=== PATIENT | female | born 1970 | race Caucasian/White ===

== ENCOUNTER 2016-06-10 15:57 | Emergency (ER) | payer MEDICAID ==
[~2016-06-10] VITALS: Wt 70.0 kg
[~2016-06-10 15:57] MED LIST: IBUP-1542 PO; IBUP-725
[2016-06-10] MEDS ORDERED: DIAZ-90 PO (16:23)
--- NOTE | 2016-06-10 16:23 | ERD ---
ER Documentation Chief Complaint Date/Time DATE: 06/10/16 TIME: 16:12 Chief Complaint INSOMNIA AND FEELING DEPRESSED WITH NO SI OR HI. HPI Pleasant Bangladeshi-speaking 45-year-old female comes into emergency department today with migraine exacerbation, stress, and difficulty sleeping. Translation provided by phone antonia. Patient reports she has stress, chronic neck pain that causes migraines. Patient is experiencing photosensitivity, flashing light on left side, with nausea. Patient reports using Valium in the past for neck pain and sleep reports that it is effective. Patient has used Motrin for migraines in the past which usually works for symptoms, patient states that has not worked for this headache. Patient does not know the exact time that headache started, but this is not the worst headache of patient's life. ROS All systems reviewed and are negative except as per history of present illness. Medications Home Meds Active Scripts Ibuprofen* (Motrin*) 800 Mg Tab, 800 MG PO Q6, #30 TAB Prov:REMBERTO,CHRIS 06/10/16 Diazepam* (Valium*) 5 Mg Tablet, 5 MG PO Q8, #10 TAB Prov:REMBERTO,CHRIS 06/10/16 Ibuprofen* (Motrin*) 600 Mg Tab, 600 MG PO Q6H Y for PAIN AND OR ELEVATED TEMP, #30 Prov:ELÍAS VILLELA NP 09/11/14 Reported Medications Ibuprofen (Motrin) 400 Mg Tablet 09/05/12 Allergies Allergies: Coded Allergies: No Known Allergy (Verified , 09/11/14) PMhx/Soc History of Surgery: No Anesthesia Reaction: No Hx Neurological Disorder: No Hx Respiratory Disorders: No Hx Cardiac Disorders: No Hx Miscellaneous Medical Probl: No Hx Alcohol Use: No Hx Substance Use: No Hx Tobacco Use: No Physical Exam Vitals Vital Signs Date Time Temp Pulse Resp B/P Pulse Ox O2 Delivery O2 Flow Rate FiO2 06/10/16 16:07 98.8 93 20 120/74 98 Nursing notes reviewed, vital stable Physical Exam Const: No acute distress Head: Atraumatic Eyes: Normal Conjunctiva, PERRLA, EOMI, ENT: Normal External Ears, Nose and Mouth. Neck: Full range of motion. No cervical point tenderness, paraspinal muscle tenderness. Resp: Cardio: Abd: Skin: Back: Ext: Neur: Speech is clear, pupils equal round and reactive to light and accommodation, sensation to light touch is intact bilaterally. There is no pronator drift. Finger to nose test is intact bilaterally. Director [employer] strength is 5/ 5. Flexion and extension is intact bilaterally Psych: Normal Mood and Affect Procedures/MDM Pleasant 45-year-old patient reports chronic migraine, neck pain and stress, patient denies any injury, has classic migraine symptoms, and palpable muscle tenderness to paraspinal and trapezius. I feel the patient is stable for discharge at this time. And will benefit from outpatient therapy with a short dose of Valium for muscle relaxant, and Motrin, patient should follow-up with her primary care physician for reevaluation. I have discussed results, examination findings, the treatment plan with the patient and family present prior to discharge. Indications for emergent reevaluation, side effects of medication were also discussed. All questions were answered. Patient verbalizes understanding and agrees with plan of care. Departure Diagnosis: Primary Impression: Cervical strain Encounter type: initial encounter Qualified Code: S16.1XXA - Cervical strain , initial encounter Additional Impression: Headache Headache chronicity pattern: chronic headache Intractability: not intractable Condition: Good Patient Instructions: Self-Care for Headaches [facility] Additional Instructions: Thank you for for coming to [facility] for your care today. Please ask your nurse or provider if you have questions about your care today and do not leave until all your questions have been answered. Please use any medications given as directed and follow-up with your doctor (or the doctor you were referred to) in the next 2-3 days. If you do not have a primary care doctor you may follow up at the [facility] [place] (listed below). You may also use motrin and tylenol as needed for fever and/or pain unless instructed otherwise by your provider or nurse. Indications for more urgent follow-up have been discussed, but you may return to the Emergency Department at ANY time for any worrisome or worsening symptoms. If you have abdominal pain, please know that no test or exam you received is perfect and you should follow up within 8 hours for continued pain. If you had any imaging studies today, such as an X-Ray or CT Scan, these studies will be reviewed later by a radiologist. You will be called if there are important findings that were not identified today, so make sure the contact information you provided at registration is correct. If you received any narcotic pain control medicine today, such as Vicodin, Morphine or Dilaudid, your coordination and judgment may be affected for a number of hours. Please do not drive or operate heavy machinery, and you may want someone to assist you at home. If you were given a prescription for narcotic medication, be aware that it is very addictive- use sparingly and only if necessary. CHRIS SR Jun 10, 2016 16:23
[2016-06-10] MEDS ORDERED: IBUP800T25 PO (16:24)
== END 2016-06-10 16:24 | disposition home or self-care (01) ==
LOC: E/R 15:57
DX: S16.1XXA Strain of muscle, fascia and tendon at neck level, initial encounter (principal); R51 Headache; X58.XXXA Exposure to other specified factors, initial encounter; Y92.9 Unspecified place or not applicable
CPT/HCPCS: 99283

== ENCOUNTER 2016-06-21 14:50 | Emergency (ER) | payer MEDICAID ==
[~2016-06-21] VITALS: Ht 157.5 cm; Wt 65.9 kg
[~2016-06-21 14:50] MED LIST changes: +DIAZ-90 PO; +IBUP800T25 PO
[2016-06-21 15:00] VITALS: Ht 157.5 cm; Wt 65.9 kg
--- NOTE | 2016-06-21 15:21 | ERA ---
ER Documentation Chief Complaint Date/Time DATE: 06/21/16 TIME: 15:19 Chief Complaint BROUGHT IN VIA EMS DUE TO ETOH WITH [employer] HPI Patient is a 45-year-old female who was brought in by EMS with [employer] because she was found on a bridge threatening to jump off of it. She is admittedly intoxicated. She does not say anything to me other than she wants a blanket. The remainder of the systems are limited. ROS All systems reviewed and are negative except as per history of present illness. Medications Home Meds Active Scripts Ibuprofen* (Motrin*) 800 Mg Tab, 800 MG PO Q6, #30 TAB Prov:REMBERTO,CHRIS 06/10/16 Diazepam* (Valium*) 5 Mg Tablet, 5 MG PO Q8, #10 TAB Prov:REMBERTO,CHRIS 06/10/16 Discontinued Reported Medications Ibuprofen (Motrin) 400 Mg Tablet 09/05/12 Discontinued Scripts Ibuprofen* (Motrin*) 600 Mg Tab, 600 MG PO Q6H Y for PAIN AND OR ELEVATED TEMP, #30 Prov:ELÍAS VILLELA NP 09/11/14 Allergies Allergies: Coded Allergies: No Known Allergy (Verified , 06/21/16) PMhx/Soc History of Surgery: No Anesthesia Reaction: No Hx Neurological Disorder: No Hx Respiratory Disorders: No Hx Cardiac Disorders: No Hx Psychiatric Problems: Yes (ANXIETY) Hx Miscellaneous Medical Probl: No Hx Alcohol Use: Yes Hx Substance Use: No Hx Tobacco Use: No Smoking Status: Never smoker Physical Exam Vitals Vital Signs Date Time Temp Pulse Resp B/P Pulse Ox O2 Delivery O2 Flow Rate FiO2 06/21/16 15:00 98.0 100 18 146/86 99 Physical Exam Const: [] Well-developed well-nourished female lying on the bed tearful, smelling of alcohol Head: Atraumatic normocephalic Eyes: Normal Conjunctiva ENT: Normal External Ears, Nose and Mouth. Neck: Full range of motion..~ No meningismus. Resp: Clear to auscultation bilaterally Cardio: Regular rate and rhythm, no murmurs Abd: Soft, non tender, non distended. Normal bowel sounds Skin: No petechiae or rashes Back: No midline or flank tenderness Ext: No cyanosis, or edema Neur: Awake and alert, GCS of 15, nonfocal Psych: Depressed mood with tearful affect Result Diagram: 06/21/16 1525 06/21/16 1525 Results 24 hrs Laboratory Tests Test 06/21/16 15:25 06/21/16 15:50 White Blood Count 8.710^3/ul Red Blood Count 3.8710^6/ul Hemoglobin 12.6g/dl Hematocrit 35.8% Mean Corpuscular Volume 92.5fl Mean Corpuscular Hemoglobin 32.6pg Mean Corpuscular Hemoglobin Concent 35.2g/dl Red Cell Distribution Width 12.2% Platelet Count 08656^3/UL Mean Platelet Volume 9.5fl Neutrophils % 52.5% Lymphocytes % 39.9% Monocytes % 6.0% Eosinophils % 1.3% Basophils % 0.1% Nucleated Red Blood Cells % 0.0/100WBC Neutrophils # 4.610^3/ul Lymphocytes # 3.510^3/ul Monocytes # 0.510^3/ul Eosinophils # 0.110^3/ul Basophils # 0.010^3/ul Nucleated Red Blood Cells # 0.010^3/ul Sodium Level 143mmol/L Potassium Level 3.2mmol/L Chloride Level 106mmol/L Carbon Dioxide Level 23mmol/L Anion Gap 17 Blood Urea Nitrogen 18mg/dl Creatinine 0.70mg/dl Glucose Level 159mg/dl Calcium Level 9.2mg/dl Total Bilirubin 0.1mg/dl Direct Bilirubin 0.00mg/dl Indirect Bilirubin 0.1mg/dl Aspartate Amino Transf (AST/SGOT) 47IU/L Alanine Aminotransferase (ALT/SGPT) 47IU/L Alkaline Phosphatase 114IU/L Total Protein 7.6g/dl Albumin 4.2g/dl Globulin 3.40g/dl Albumin/Globulin Ratio 1.23 Salicylates Level < 1.0mg/dl Acetaminophen Level < 10.0ug/ml Ethyl Alcohol Level 358.0mg/dl Urine Color LT. YELLOW Urine Clarity CLEAR Urine pH 6.5 Urine Specific [place] <=1.005 Urine Ketones NEGATIVE Urine Nitrite NEGATIVE Urine Bilirubin NEGATIVE Urine Urobilinogen 0.2 E.U./dL Urine Leukocyte Esterase TRACE Urine Microscopic RBC 0-2/HPF Urine Microscopic WBC 0-2/HPF Urine Squamous Epithelial Cells MODERATE Urine Hemoglobin TRACE Urine Glucose NEGATIVE% Urine Total Protein NEGATIVE Urine Opiates Screen NEGATIVE Urine Barbiturates NEGATIVE Urine Amphetamines Screen POSITIVE Urine Benzodiazepines Screen NEGATIVE Urine Cocaine Screen NEGATIVE Urine Cannabinoids NEGATIVE Procedures/MDM Differential includes major depressive disorder, alcohol intoxication, suicidal ideation, suicide attempt 1840: Patient went to the bathroom and proceeded to beat her head on the floor in an attempt to hurt her self. 4 point restraints have now been ordered for her. Lab work confirms that she is intoxicated. Urine drug screen is positive for amphetamines as well. Patient will need to be transferred to a psychiatric facility for further treatment once she is sober. Departure Diagnosis: Primary Impression: Agitated depression Additional Impressions: Suicide ideation Suicide attempt Alcohol intoxication Qualified Code: F10.120 - Alcohol intoxication, uncomplicated Amphetamine abuse Condition: Good JAYLAN CORTES Jun 21, 2016 15:21
[2016-06-21 15:34] LABS: ADD SCAN DIFF NO
[2016-06-21 15:36] LABS: BASOPHILS % 0.1 % (0.0-2.0); EOSINOPHILS # 0.1 10^3/ul (0.0-0.5); EOSINOPHILS % 1.3 % (0.0-7.0); HEMATOCRIT 35.8 % (37.0-47.0); HEMOGLOBIN 12.6 g/dl (12.0-16.0); LYMPHOCYTES # 3.5 10^3/ul (0.8-2.9); LYMPHOCYTES % 39.9 % (15.0-51.0); MEAN CORPUSCULAR HEMOGLOBIN 32.6 pg (29.0-33.0); MEAN CORPUSCULAR HGB CONC 35.2 g/dl (32.0-37.0); MEAN CORPUSCULAR VOLUME 92.5 fl (82.0-101.0); MEAN PLATELET VOLUME 9.5 fl (7.4-10.4); MONOCYTE # 0.5 10^3/ul (0.3-0.9); NEUTROPHIL # 4.6 10^3/ul (1.6-7.5); NEUTROPHILS % 52.5 % (39.0-77.0); PLATELET COUNT 360 10^3/UL (140-415); RED BLOOD COUNT 3.87 10^6/ul (4.20-5.40); RED CELL DISTRIBUTION WIDTH 12.2 % (11.5-14.5); WHITE BLOOD COUNT 8.7 10^3/ul (4.8-10.8)
[2016-06-21 16:00] LABS: CHLORIDE 106 mmol/L (97-110)
[2016-06-21 16:01] LABS: ALBUMIN 4.2 g/dl (3.3-4.9); POTASSIUM 3.2 mmol/L (3.5-5.1); SODIUM 143 mmol/L (135-144)
[2016-06-21 16:03] LABS: ANION GAP 17 (8-16); BILIRUBIN,INDIRECT 0.1 mg/dl (0-1.1); BILIRUBIN,TOTAL 0.1 mg/dl (0.2-1.3); CARBON DIOXIDE 23 mmol/L (21-31)
[2016-06-21 16:04] LABS: ALANINE AMINOTRANSFERASE 47 IU/L (13-69); ALBUMIN/GLOBULIN RATIO 1.23; ALKALINE PHOSPHATASE 114 IU/L (42-121); ASPARTATE AMINO TRANSFERASE 47 IU/L (15-46); BLOOD UREA NITROGEN 18 mg/dl (7-20); CALCIUM 9.2 mg/dl (8.4-10.2); GLUCOSE 159 mg/dl (70-220); TOTAL PROTEIN 7.6 g/dl (6.1-8.1)
[2016-06-21 16:06] LABS: ACETAMINOPHEN < 10.0 ug/ml (10.0-30.0); SALICYLATE < 1.0 mg/dl (5.0-30.0)
[2016-06-21 16:15] LABS: ADD UMIC YES; URINE BILIRUBIN (Dip) NEGATIVE (NEGATIVE); URINE BLOOD (Dip) TRACE (NEGATIVE); URINE COLOR LT. YELLOW (YELLOW); URINE GLUCOSE (Dip) NEGATIVE (NEGATIVE); URINE KETONES (Dip) NEGATIVE (NEGATIVE); URINE LEUKOCYTE ESTERASE (Dip) TRACE (NEGATIVE); URINE NITRITE (Dip) NEGATIVE (NEGATIVE); URINE TOTAL PROTEIN (Dip) NEGATIVE (NEGATIVE); URINE UROBILINOGEN (Dip) 0.2 E.U./dL (0.1-1.0)
[2016-06-21 16:25] LABS: SQUAMOUS EPITHELIAL CELL,UR MODERATE; URINE RBCS 0-2 /HPF (0)
[2016-06-21 16:41] LABS: BARBITURATES NEGATIVE (NEGATIVE); BENZODIAZEPINES NEGATIVE (NEGATIVE); CANNABINOIDS NEGATIVE (NEGATIVE); COCAINE NEGATIVE (NEGATIVE); OPIATES NEGATIVE (NEGATIVE)
--- NOTE | 2016-06-21 20:52 | PSY ---
Date/Time of Note Date/Time of Note DATE: 06/21/16 TIME: 20:46 Psychiatric Subjective Eval Consent Pt consented to telemedicine: Yes Subjective Evaluation Patient location: emergency Chief Complaint: BROUGHT IN VIA EMS DUE TO ETOH WITH [employer] Reason for consult: Suicidal ideation History of present illness Patient is a 45 year old female who attempted to jump off a bridge today. She was brought in by the police. At that time, she appeared intoxicated and her urine drug screen was positive for meth. Patient was given time to rest in the ER. At some time, she went to the restroom and was found banging her head on the floor. Patient was distraught when I spoke with her and, with the exception of providing a few details, was unable/unwilling to talk. Per note review, it appears that her children live with their biological father and she is upset about this. She reports a history of suicide attempts but refused to discuss. She also admits that she was trying to kill herself. Other than acknowledging being sad, patient was too tearful and agitated to provide much biographical data. Past psychiatric history See above. Denies inpatient and outpatient care. States she is not on medications. Hospitalization: Suicidal Attempt(s) Family History Unknown Medical history Problems Medical Problems: (1) Agitated depression Status: Acute (2) Alcohol intoxication Status: Acute (3) Amphetamine abuse Status: Acute (4) Cervical strain Status: Acute (5) Headache Status: Acute (6) Patient left without being seen Status: Acute (7) Suicide attempt Status: Acute (8) Suicide ideation Status: Acute (9) Viral syndrome Status: Acute Allergies: Coded Allergies: No Known Allergy (Verified , 06/21/16) Substance Abuse Substance abuse history: Yes Social History Marital status: single Level of education: Unknown DPA/Conservatorship: No Occupation/Halfway: Unknown Psychiatric Objective Eval Mental Status Examination: Appearance: Poor Hygiene Eye Contact: Poor Psychomotor Activity: Agitated (Jumping up and down from kneeling position on gurney) Behavior: Guarded Speech: Soft AFFECT: Libile Mood: Depressed Though Process: Other (DTA due to limited speech) Thought Content: Normal Suicidal: Yes Homicidal: No On 72 hour hold: No Orientation: x2 Cognition: Alert Insight: Impared Judgement: Impared Laboratory Results Laboratory Tests Test 06/21/16 15:25 06/21/16 15:50 White Blood Count 8.710^3/ul Red Blood Count 3.8710^6/ul Hemoglobin 12.6g/dl Hematocrit 35.8% Mean Corpuscular Volume 92.5fl Mean Corpuscular Hemoglobin 32.6pg Mean Corpuscular Hemoglobin Concent 35.2g/dl Red Cell Distribution Width 12.2% Platelet Count 08283^3/UL Mean Platelet Volume 9.5fl Neutrophils % 52.5% Lymphocytes % 39.9% Monocytes % 6.0% Eosinophils % 1.3% Basophils % 0.1% Nucleated Red Blood Cells % 0.0/100WBC Neutrophils # 4.610^3/ul Lymphocytes # 3.510^3/ul Monocytes # 0.510^3/ul Eosinophils # 0.110^3/ul Basophils # 0.010^3/ul Nucleated Red Blood Cells # 0.010^3/ul Sodium Level 143mmol/L Potassium Level 3.2mmol/L Chloride Level 106mmol/L Carbon Dioxide Level 23mmol/L Anion Gap 17 Blood Urea Nitrogen 18mg/dl Creatinine 0.70mg/dl Glucose Level 159mg/dl Calcium Level 9.2mg/dl Total Bilirubin 0.1mg/dl Direct Bilirubin 0.00mg/dl Indirect Bilirubin 0.1mg/dl Aspartate Amino Transf (AST/SGOT) 47IU/L Alanine Aminotransferase (ALT/SGPT) 47IU/L Alkaline Phosphatase 114IU/L Total Protein 7.6g/dl Albumin 4.2g/dl Globulin 3.40g/dl Albumin/Globulin Ratio 1.23 Salicylates Level < 1.0mg/dl Acetaminophen Level < 10.0ug/ml Ethyl Alcohol Level 358.0mg/dl Urine Color LT. YELLOW Urine Clarity CLEAR Urine pH 6.5 Urine Specific [place] <=1.005 Urine Ketones NEGATIVE Urine Nitrite NEGATIVE Urine Bilirubin NEGATIVE Urine Urobilinogen 0.2 E.U./dL Urine Leukocyte Esterase TRACE Urine Microscopic RBC 0-2/HPF Urine Microscopic WBC 0-2/HPF Urine Squamous Epithelial Cells MODERATE Urine Hemoglobin TRACE Urine Glucose NEGATIVE% Urine Total Protein NEGATIVE Urine Opiates Screen NEGATIVE Urine Barbiturates NEGATIVE Urine Amphetamines Screen POSITIVE Urine Benzodiazepines Screen NEGATIVE Urine Cocaine Screen NEGATIVE Urine Cannabinoids NEGATIVE Assessment and Plan Assessment/Diagnosis [place] I: Unspecified Affective Disorder, Stimulant Use Disorder, Alcohol Use Disorder Recommendation/Plan Medication Management Per inpatient psychiatry. Psychotherapy N/A Pt. Caregiver/Family Education N/A Follow-up/Disposition Recommend 5150 and transfer to inpatient psychiatry. Patient remains a high risk for self harm. 5150 Recommendation: Place Hold (Attempted to jump off bridge today. ) SAVI LEUNG Jun 21, 2016 20:52
[2016-06-22] MEDS ORDERED: IBUPROFEN 600 MG TAB PO ONE (06:30)
[2016-06-22 13:30] VITALS: BP 138/92; PULSE 82; RESP 18; TEMP 98.7
== END 2016-06-22 14:26 ==
LOC: E/R 14:50
DX: F32.2 Major depressive disorder, single episode, severe without psychotic features (principal); F15.10 Other stimulant abuse, uncomplicated; R45.851 Suicidal ideations
CPT/HCPCS: 80053; 80306; 80307; 81001; 85025; Z7502; Z7610; 81003

== ENCOUNTER 2016-09-30 12:33 | Emergency (ER) | payer MEDICAID ==
[~2016-09-30] VITALS: Ht 154.9 cm; Wt 72.5 kg
[~2016-09-30 12:33] MED LIST changes: -IBUP-1542 PO; -IBUP-725
[2016-09-30 12:36] VITALS: Ht 154.9 cm; Wt 72.5 kg
--- NOTE | 2016-09-30 14:08 | RADRPT ---
PROCEDURE: CT head CLINICAL INDICATION: Headache for 1 month TECHNIQUE: Contiguous 2.5 mm axial images were obtained from the vertex to the skull base. No int ravenous contrast was administered. The calculated dose length product (DLP) = 630.20 mGy-cm. The CTDlvol = 44.46 mGy. One or more of the following dose reduction techniques were used: Automated e xposure control, adjustment of the mA and or KV according to patient size, or use of iterative recon struction technique. COMPARISON: 09/07/2012 FINDINGS: There is no acute intracranial hemorrhage or acute territorial infarct. No mass or mass effect is s een on this noncontrast study. There is stable mild prominence of the lateral ventricles which is u nchanged. No obvious transependymal flow is seen. Reyna-white matter differentiation is within norm al limits. Visualized paranasal sinuses are normally aerated. The bony calvarium is unremarkable. IMPRESSION: 1. No acute intracranial hemorrhage or acute territorial infarct. 2. Stable mild prominence of the lateral ventricles which is unchanged. 3. No interval change RPTAT: HH .Andrew Winter MD, MD Date Time Electronically viewed and signed by .Andrew Winter MD, MD on 09/30/2016 14:07 .W/
[2016-09-30] MEDS ORDERED: KETOROLAC 30 MG INJ IM STA (14:33)
[2016-09-30] MEDS ORDERED: EXCED PO (14:42)
--- NOTE | 2016-09-30 15:03 | ERD ---
ER Documentation Chief Complaint Date/Time DATE: 09/30/16 TIME: 14:57 Chief Complaint head pain x 1 month HPI Patient is a 45-year-old female presents to the emergency department with concerns of a headache 1 month. Denies sudden onset of headache. Patient reports pain in the frontal and occipital regions. Patient states she occasionally does have neck pain. She denies any neck stiffness or fevers. Patient denies any recent falls or trauma. Patient denies any nausea, vomiting , photophobia, phonophobia, loss of consciousness. Patient denies any chest pain, shortness breath, left upper extremity pain or diaphoresis. Patient is ambulating without any difficulty. Patient speaking in full sentences. Patient denies any unilateral weakness, slurred speech. Per chart review patient has had a CT brain in 2012. ROS All systems reviewed and are negative except as per history of present illness. Medications Home Meds Active Scripts Acetaminophen/Aspirin/Caffeine* (Excedrin*) 1 Tab Tab, 1 TAB PO BID, #20 TAB Prov:COLBY AKINS PA-C 09/30/16 Ibuprofen* (Motrin*) 800 Mg Tab, 800 MG PO Q6, #30 TAB Prov:REMBERTO,CHRIS 06/10/16 Diazepam* (Valium*) 5 Mg Tablet, 5 MG PO Q8, #10 TAB Prov:REMBERTO,CHRIS 06/10/16 Allergies Allergies: Coded Allergies: No Known Allergy (Verified , 09/30/16) PMhx/Soc Medical and Surgical Hx: pt denies Surgical Hx History of Surgery: No Anesthesia Reaction: No Hx Neurological Disorder: No Hx Respiratory Disorders: No Hx Cardiac Disorders: No Hx Psychiatric Problems: Yes (ANXIETY) Hx Miscellaneous Medical Probl: No Hx Alcohol Use: Yes Hx Substance Use: No Hx Tobacco Use: No Smoking Status: Former smoker FmHx Family History: No diabetes Physical Exam Vitals Vital Signs Date Time Temp Pulse Resp B/P Pulse Ox O2 Delivery O2 Flow Rate FiO2 09/30/16 12:36 98.5 82 18 106/58 97 Physical Exam GENERAL: Well-developed, well-nourished female. Appears in no acute distress. Speaking in full sentences. HEAD: Normocephalic, atraumatic. No deformities or ecchymosis. EYE: Pupils equal, round, and reactive to light. EOMs intact. No conjunctival erythema. No eye discharge. ENT: External ear without any masses or tenderness. Auditory canals clear bilaterally. TM visualized bilaterally, non-erythematous, non-bulging. Nasal mucosa pink with no discharge. Oropharynx is pink without any tonsillar erythema or exudates. No uvula deviation. No kissing tonsils. NECK: Supple. No meningismus. Normal ROM of the neck. Tender to palpation of trapezius muscles bilaterally. LUNG: Clear to auscultation bilaterally. No rhonchi, wheezing, rales or coarse breath sounds. HEART: Regular rate and rhythm. No murmurs, rubs or gallops. BACK: No midline tenderness. EXTREMITIES: Equal pulses bilaterally. No peripheral clubbing, cyanosis or edema. No unilateral leg swelling. NEUROLOGIC: Alert and oriented x3, cooperative. Mood and affect appropriate to situation. Cranial nerves II through XII are grossly intact. Normal speech. Motor exam: 5/5 strength in upper and lower extremities. Sensory exam: Sensation intact to light touch on all four extremities. Cerebellar function exam: No dysmetria on [id number] test. Steady gait. No pronator drift. Negative Brudzinski sign. Negative Kernig sign. SKIN: Normal color. Warm and dry. No rashes or lesions. Results 24 hrs Current Medications Medications (Trade) Dose Ordered Sig/Donnie Route PRN Reason Start Time Stop Time Status Last Admin Dose Admin Ketorolac Tromethamine (Toradol) 30 mg ONCE STAT IM 09/30/16 14:33 09/30/16 14:34 DC 09/30/16 14:49 Procedures/MDM ED COURSE: The patient was stable throughout ED course. I kept the patient and/or family informed of laboratory and diagnostic imaging results throughout the ED course. DIAGNOSTIC IMAGING: Read by radiologist. Patient: ANYA MORSE : 1970 Age: 45 Sex: F MR #: [id number] DOS: 09/30/16 1333 Ordering MD: COLBY AKINS PA-C Location: [facility] Room/Bed: PROCEDURE: CT head CLINICAL INDICATION: Headache for 1 month TECHNIQUE: Contiguous 2.5 mm axial images were obtained from the vertex to the skull base. No intravenous contrast was administered. The calculated dose length product (DLP) = 630.20 mGy-cm. The CTDlvol = 44.46 mGy. One or more of the following dose reduction techniques were used: Automated exposure control , adjustment of the mA and or KV according to patient size, or use of iterative reconstruction technique. COMPARISON: 09/07/2012 FINDINGS: There is no acute intracranial hemorrhage or acute territorial infarct. No mass or mass effect is seen on this noncontrast study. There is stable mild prominence of the lateral ventricles which is unchanged. No obvious transependymal flow is seen. Reyna-white matter differentiation is within normal limits. Visualized paranasal sinuses are normally aerated. The bony calvarium is unremarkable. IMPRESSION: 1. No acute intracranial hemorrhage or acute territorial infarct. 2. Stable mild prominence of the lateral ventricles which is unchanged. 3. No interval change RPTAT: HH .Andrew Winter MD, MD Date Time Electronically viewed and signed by .Andrew Winter MD, MD on 09/30/2016 14:07 .W/ CC: COLBY AKINS PA-C PROCEDURES: None. MEDICATIONS GIVEN: Toradol IM Patient tolerated medication well with no adverse reactions. Patient reported improvement in pain. MEDICAL DECISION MAKING: This is a 45-year-old female presents with a headache 1 month. Patient denies sudden onset of headache. Patient denies any fevers, neck stiffness, nausea, vomiting or loss consciousness.. Vital signs were reviewed. Patient was afebrile. Patient is not hypoxic. Urine test is negative. Per chart review, patient has had headaches in the past. Patient last had a CT scan of her head in 2012. Full neurological exam was normal. CT scan of the brain today was unremarkable for any acute intracranial hemorrhage or acute infarct. After CT scan was obtained and negative findings noted, patient was given Toradol IM here in the ED. Patient reported improvement in pain. Given these findings, the patient's presentation is most consistent with tension headache. I have a much lower clinical concern for intracranial hemorrhage, meningitis, encephalitis, CVA, temporal arteritis, benign intracranial hypertension, intracranial mass, sinusitis, cluster headache, . PRESCRIPTIONS: Excedrin DISCHARGE: At this time, patient is stable for discharge and outpatient management. I have encouraged the patient to hydrate well. I have instructed the patient to follow- up with his/her primary care physician in 1-2 days. If symptoms persist, patient may need to see a specialist for further examinations and testing. I have instructed the patient to promptly return to the ER at any time for any new or worsening symptoms including increased increased pain, fever, nausea, vomiting, numbness, neck stiffness, visual changes, weakness or LOC. The patient and/or family expressed understanding of and agreement with this plan. All questions were answered. Home care instructions were provided. Departure Diagnosis: Primary Impression: Headache Headache type: unspecified Headache chronicity pattern: unspecified pattern Intractability: not intractable Qualified Code: R51 - Nonintractable headache, unspecified chronicity pattern, unspecified headache type Condition: Stable Patient Instructions: Self-Care for Headaches Referrals: [facility] YOU HAVE RECEIVED A MEDICAL SCREENING EXAM AND THE RESULTS INDICATE THAT YOU DO NOT HAVE A CONDITION THAT REQUIRES URGENT TREATMENT IN THE EMERGENCY DEPARTMENT. FURTHER EVALUATION AND TREATMENT OF YOUR CONDITION CAN WAIT UNTIL YOU ARE SEEN IN YOUR DOCTORS OFFICE WITHIN THE NEXT 1-2 DAYS. IT IS YOUR RESPONSIBILITY TO MAKE AN APPOINTMENT FOR FOLOW-UP CARE. IF YOU HAVE A PRIMARY DOCTOR --you should call your primary doctor and schedule an appointment IF YOU DO NOT HAVE A PRIMARY DOCTOR YOU CAN CALL OUR PHYSICIAN REFERRAL HOTLINE AT IF YOU CAN NOT AFFORD TO SEE A PHYSICIAN YOU CAN CHOSE FROM THE FOLLOWING [facility] [address] [facility] [address] [facility] [facility] [address] [facility] [address] [facility] [address] [facility]. [facility]. [address] [facility] [facility] YOU HAVE RECEIVED A MEDICAL SCREENING EXAM AND THE RESULTS INDICATE THAT YOU DO NOT HAVE A CONDITION THAT REQUIRES URGENT TREATMENT IN THE EMERGENCY DEPARTMENT. FURTHER EVALUATION AND TREATMENT OF YOUR CONDITION CAN WAIT UNTIL YOU ARE SEEN IN YOUR DOCTORS OFFICE WITHIN THE NEXT 1-2 DAYS. IT IS YOUR RESPONSIBILITY TO MAKE AN APPOINTMENT FOR FOLOW-UP CARE. IF YOU HAVE A PRIMARY DOCTOR --you should call your primary doctor and schedule and appointment IF YOU DO NOT HAVE A PRIMARY DOCTOR YOU CAN CALL OUR PHYSICIAN REFERRAL HOTLINE AT . IF YOU CAN NOT AFFORD TO SEE A PHYSICIAN YOU CAN CHOSE FROM THE FOLLOWING [facility] INSTITUTIONS: [facility] [address] [place] [address] [facility] [address] [place] [address] [facility] [address] [place] [address] Additional Instructions: Llame al doctor MAANA y chantel jovany MIKEY PARA DENTRO DE 1-2 LASSITER.Dgale a la secretaria que nosotros le instruimos hacer esta mikey.Avise o llame si dunaway condicin se empeora antes de la mikey. Regresa aqui si peor o no mejor. COLBY AKINS PA-C Sep 30, 2016 15:03
[2016-09-30 15:27] VITALS: BP 108/58; RESP 17; TEMP 98.7
== END 2016-09-30 15:27 | disposition home or self-care (01) ==
LOC: FTE 12:33
DX: R51 Headache (principal); Z87.891 Personal history of nicotine dependence
CPT/HCPCS: 70450; 96372; J1885; Z7502

== ENCOUNTER 2016-12-20 06:58 | Emergency (ER) | payer MEDICAID ==
[~2016-12-20] VITALS: Ht 157.5 cm; Wt 78.9 kg
[~2016-12-20 06:58] MED LIST changes: +EXCED PO
[2016-12-20 07:01] VITALS: Ht 157.5 cm; Wt 78.9 kg
[2016-12-20] MEDS ORDERED: FAMOTIDINE 20 MG INJ IV STA (08:42)
[2016-12-20] MEDS ORDERED: morphine 4 MG/ML VIAL IV STA (08:42)
[2016-12-20] MEDS ORDERED: ONDANSETRON 4 MG INJ IV STA ×2 (08:42→11:25)
[2016-12-20] MEDS ORDERED: SOD CHLORIDE 0.9% 1,000 ML IV STA (08:42)
[2016-12-20 09:24] LABS: ABNORMAL IP MESSAGE 1; BASOPHILS % 0.2 % (0.0-2.0); HEMATOCRIT 42.2 % (37.0-47.0); HEMOGLOBIN 14.6 g/dl (12.0-16.0); LYMPHOCYTES # 0.6 10^3/ul (0.8-2.9); LYMPHOCYTES % 6.7 % (15.0-51.0); MEAN CORPUSCULAR HEMOGLOBIN 30.5 pg (29.0-33.0); MEAN CORPUSCULAR HGB CONC 34.6 g/dl (32.0-37.0); MEAN CORPUSCULAR VOLUME 88.3 fl (82.0-101.0); MEAN PLATELET VOLUME 9.9 fl (7.4-10.4); MONOCYTE # 0.3 10^3/ul (0.3-0.9); NEUTROPHIL # 7.4 10^3/ul (1.6-7.5); NEUTROPHILS % 88.9 % (39.0-77.0); PLATELET COUNT 307 10^3/UL (140-415); RED BLOOD COUNT 4.78 10^6/ul (4.20-5.40); RED CELL DISTRIBUTION WIDTH 12.4 % (11.5-14.5); WHITE BLOOD COUNT 8.3 10^3/ul (4.8-10.8)
[2016-12-20 09:29] LABS: ADD UMIC YES; UR ASCORBIC ACID NEGATIVE (NEGATIVE); UR BILIRUBIN (Dip) NEGATIVE (NEGATIVE); UR BLOOD (Dip) 2+ mg/dL (NEGATIVE); UR CLARITY SLIGHTLY CLOUDY (CLEAR); UR COLOR YELLOW (YELLOW); UR GLUCOSE (Dip) NEGATIVE (NEGATIVE); UR KETONES (Dip) NEGATIVE (NEGATIVE); UR LEUKOCYTE ESTERASE (Dip) NEGATIVE Leu/ul (NEGATIVE); UR NITRITE (Dip) NEGATIVE (NEGATIVE); UR RBC 10 /HPF (0-5); UR SPECIFIC GRAVITY (Dip) 1.016 (1.003-1.030); UR SQUAMOUS EPITHELIAL CELL FEW /HPF (FEW); UR TOTAL PROTEIN (Dip) 2+ mg/dl (NEGATIVE); UR UROBILINOGEN (Dip) NEGATIVE (NEGATIVE)
[2016-12-20 09:49] LABS: ALBUMIN 4.2 g/dl (3.3-4.9); ALBUMIN/GLOBULIN RATIO 0.97; BILIRUBIN,INDIRECT 0.3 mg/dl (0-1.1); BILIRUBIN,TOTAL 0.3 mg/dl (0.2-1.3); CALCIUM 10.2 mg/dl (8.4-10.2); CREATININE 0.79 mg/dl (0.44-1.00); TOTAL PROTEIN 8.5 g/dl (6.1-8.1)
--- NOTE | 2016-12-20 12:51 | RADRPT ---
PROCEDURE: CT Abdomen and Pelvis without contrast. CLINICAL INDICATION: Abdominal pain, vomiting. TECHNIQUE: CT scan of the abdomen and pelvis without contrast was performed on a multidetector hig h-resolution CT scanner. The patient was scanned without intravenous contrast. Coronal and sagittal reformatted images were obtained from the axial source images. Images were reviewed on a high-resol [employer] PACS workstation. One or more of the following dose reduction techniques were used: Automated exposure control, adjustment of the mA and/or kV according to patient size, use of iterative recon struction technique. The total exam CTDI equals 10.12 mGy and the total exam DLP equals 590.34 mGy- cm. COMPARISON: Abdominal ultrasound from 10/31/2013 FINDINGS: CT abdomen: The lung bases are clear. The heart size is normal, without pericardial thickening or effusion. The liver is enlarged measuring 19.5 cm and demonstrates diffusely decreased density without focal m ass or intrahepatic biliary dilatation. The spleen is normal in size and homogeneous in density. T he stomach is grossly unremarkable. The pancreas as visualized is normal. The gallbladder and bili amarilis tree are unremarkable and there is no evidence for biliary dilatation. The adrenal glands are s ymmetric and normal. The kidneys are symmetrically unremarkable as well. No renal calculus or obst ructive uropathy or mass lesion is seen. The aorta is of normal caliber. There is no retroperitoneal lymphadenopathy. The carolyn hepatis reg ion is clear. There is a small duodenal diverticulum at the medial aspect of the second portion of the duodenum. Otherwise, the small bowel and mesentery, as visualized, are unremarkable. CT pelvis: The small bowel loops situated within the pelvis are unremarkable. The endometrium appears thickene d in the region of the lower uterine segment measuring up to 1.9 cm. A predominately fat density le willem measuring 2.1 x 2.4 x 1.9 cm is present in the right adnexa region. There is minimal focal nubia pheral soft tissue component. No associated calcifications are seen. Otherwise, the pelvic organs ar e normal. The pelvic sidewalls and inguinal regions are clear. Scattered diverticula are present i n the descending and sigmoid colon without evidence of diverticulitis . The appendix is normal. No m ass, lymphadenopathy, or free fluid is seen. No acute inflammation is seen. The surrounding osseous structures are unremarkable. There is congenital lumbar spinal stenosis wi th superimposed degenerative changes including disc bulges and ligamentum flavum hypertrophy, result ing in moderate to severe central canal stenosis at L3 - L5, worst at L4-L5. No osteolytic or osteob lastic lesion is detected. IMPRESSION: 1. No evidence of abdominal or pelvic acute inflammatory process. 2. 2.1 x 2.4 x 1.9 cm mixed fat and soft tissue density mass within the right adnexa region, consis tent with a dermoid cyst (teratoma). 3. Focal thickening of the endometrium in the lower uterine segment measuring up to 1.9 cm, nonspec ific. If there is further concern, consider further evaluation with dedicated pelvic ultrasound. 4. Diverticulosis without evidence of diverticulitis. 5. Small fat-containing umbilical hernia. 6. Small duodenal diverticulum. 7. Hepatomegaly and hepatic steatosis. RPTAT: JJ .Aaron Cuenca MD, Date Time Electronically viewed and signed by .Aaron Cuenca MD, on 12/20/2016 12:51 .A/
[2016-12-20] MEDS ORDERED: POTASSIUM CHLORIDE (SR) 20 MEQ TAB PO STA (13:20)
--- NOTE | 2016-12-20 14:09 | RADRPT ---
PROCEDURE: US Pelvis. CLINICAL INDICATION: pelvic pain , vaginal bleeding TECHNIQUE: Multiple sonographic images of the pelvis were obtained utilizing a transabdominal and endovaginal technique. The images were reviewed on a PACS workstation. COMPARISON: CT 12/20/2016 FINDINGS: The uterus is slightly enlarged in size with a heterogeneous appearance of the myometrium. The uter us measures 11.2 x 4.7 x 6.4 cm. The endometrial stripe is homogeneous in appearance and has the thickness of 10 mm. The ovaries are visualized. No free fluid is present within the pelvis. RPTAT: AA IMPRESSION: Slightly enlarged and heterogeneous uterus with no discrete mass. Ovaries not visualized. Recently described possible right adnexal dermoid was not seen by ultrasound . .Armando Reese MD, Date Time Electronically viewed and signed by .Armando Reese MD, MD on 12/20/2016 14:09 .S/
[2016-12-20] MEDS ORDERED: ACET500C5 PO (14:21)
[2016-12-20] MEDS ORDERED: ONDA4TAB14 PO (14:21)
--- NOTE | 2016-12-20 15:44 | ERD ---
ER Documentation Chief Complaint Date/Time DATE: 12/20/16 TIME: 15:38 Chief Complaint vomiting and diarrhea since monday HPI A 6-year-old female patient with medical history of hydrocephalus presents the ED complaining of abdominal pain, vomiting, diarrhea. Reports that she has a slight left-sided headache to the vomiting and diarrhea. Describes her abdominal pain as achy and rates it a 10 out of 10. Reports that she mainly has left-sided abdominal pain. Denies any shortness of breath, chest pain, fever, chills, the patient, rashes. Denies any sick contacts. ROS All systems reviewed and are negative except as per history of present illness. Medications Home Meds Active Scripts Acetaminophen* (Tylophen*) 500 Mg Capsule, 1 CAP PO Q6H Y for PAIN AND OR ELEVATED TEMP, #20 CAP Prov:NGOC YOUNG PA-C 12/20/16 Ondansetron (Ondansetron Odt) 4 Mg Tab.rapdis, 4 MG PO Q6H Y for NAUSEA AND/OR VOMITING, #10 TAB Prov:NGOC YOUNG PA-C 12/20/16 Acetaminophen/Aspirin/Caffeine* (Excedrin*) 1 Tab Tab, 1 TAB PO BID, #20 TAB Prov:COLBY AKINS PA-C 09/30/16 Ibuprofen* (Motrin*) 800 Mg Tab, 800 MG PO Q6, #30 TAB Prov:REMBERTO,CHRIS 06/10/16 Diazepam* (Valium*) 5 Mg Tablet, 5 MG PO Q8, #10 TAB Prov:REMBERTO,CHRIS 06/10/16 Allergies Allergies: Coded Allergies: No Known Allergy (Verified , 12/20/16) PMhx/Soc Medical and Surgical Hx: pt denies Surgical Hx History of Surgery: No Anesthesia Reaction: No Hx Neurological Disorder: No Hx Respiratory Disorders: No Hx Cardiac Disorders: No Hx Psychiatric Problems: Yes (ANXIETY) Hx Miscellaneous Medical Probl: No Hx Alcohol Use: Yes (socailly) Hx Substance Use: No Hx Tobacco Use: No Smoking Status: Never smoker Physical Exam Vitals Vital Signs Date Time Temp Pulse Resp B/P Pulse Ox O2 Delivery O2 Flow Rate FiO2 12/20/16 07:01 99.2 110 20 141/98 99 Physical Exam Const: [id number], well-nourished. In no acute distress. Head: Atraumatic, normocephalic Eyes: Normal Conjunctiva without injection. No purulent discharge. ENT: Normal external ear, nose. Moist oropharynx without tonsillar exudates. Non -erythematous pharynx. Uvula midline. No drooling. No trismus. Neck: No cervical midline tenderness. Full range of motion. No meningismus. No cervical lymphadenopathy. No JVD. Resp: Clear to auscultation bilaterally. No wheezing, rhonchi, rales, or crackles. No accessory muscle use. No retractions. Cardio: Regular rate and rhythm. No murmurs, rubs or gallops. Abd: Soft, diffuse tenderness, non distended. Normal bowel sounds. No palpable masses. No rebound tenderness. No guarding. Negative McBurney's point. Negative psoas sign. Negative obturator sign. Skin: No petechiae or rashes Back: No midline tenderness. No CVA tenderness. Ext: No cyanosis, or edema. Neur: Awake and alert. Normal gait. Normal coordination. Psych: Normal Mood and Affect Result Diagram: 12/20/16 0854 12/20/16 0854 Results 24 hrs Laboratory Tests Test 12/20/16 08:54 White Blood Count 8.310^3/ul Red Blood Count 4.7810^6/ul Hemoglobin 14.6g/dl Hematocrit 42.2% Mean Corpuscular Volume 88.3fl Mean Corpuscular Hemoglobin 30.5pg Mean Corpuscular Hemoglobin Concent 34.6g/dl Red Cell Distribution Width 12.4% Platelet Count 49616^3/UL Mean Platelet Volume 9.9fl Neutrophils % 88.9% Lymphocytes % 6.7% Monocytes % 4.0% Eosinophils % 0.0% Basophils % 0.2% Nucleated Red Blood Cells % 0.0/100WBC Neutrophils # 7.410^3/ul Lymphocytes # 0.610^3/ul Monocytes # 0.310^3/ul Eosinophils # 0.010^3/ul Basophils # 0.010^3/ul Nucleated Red Blood Cells # 0.010^3/ul Urine Color YELLOW Urine Clarity SLIGHTLY CLOUDY Urine pH 6.0 Urine Specific [place] 1.016 Urine Ketones NEGATIVEmg/dL Urine Nitrite NEGATIVEmg/dL Urine Bilirubin NEGATIVEmg/dL Urine Urobilinogen NEGATIVEmg/dL Urine Leukocyte Esterase NEGATIVELeu/ul Urine Microscopic RBC 10/HPF Urine Microscopic WBC 3/HPF Urine Squamous Epithelial Cells FEW/HPF Urine Hemoglobin 2+mg/dL Urine Glucose NEGATIVEmg/dL Urine Total Protein 2+mg/dl Sodium Level 137mmol/L Potassium Level 3.0mmol/L Chloride Level 101mmol/L Carbon Dioxide Level 23mmol/L Anion Gap 16 Blood Urea Nitrogen 15mg/dl Creatinine 0.79mg/dl Glucose Level 154mg/dl Calcium Level 10.2mg/dl Total Bilirubin 0.3mg/dl Direct Bilirubin 0.00mg/dl Indirect Bilirubin 0.3mg/dl Aspartate Amino Transf (AST/SGOT) 56IU/L Alanine Aminotransferase (ALT/SGPT) 60IU/L Alkaline Phosphatase 113IU/L Total Protein 8.5g/dl Albumin 4.2g/dl Globulin 4.30g/dl Albumin/Globulin Ratio 0.97 Lipase 240U/L Current Medications Medications (Trade) Dose Ordered Sig/Donnie Route PRN Reason Start Time Stop Time Status Last Admin Dose Admin Sodium Chloride (NS) 1,000 ml @ 1,000 mls/hr Q1H STAT IV 12/20/16 08:42 12/20/16 09:41 DC 12/20/16 09:08 Morphine Sulfate (morphine) 4 mg ONCE STAT IV 12/20/16 08:42 12/20/16 08:45 DC 12/20/16 09:08 Ondansetron HCl (Zofran Inj) 4 mg ONCE STAT IV 12/20/16 08:42 12/20/16 08:45 DC 12/20/16 09:07 Famotidine (Pepcid Iv) 20 mg ONCE STAT IV 12/20/16 08:42 12/20/16 08:45 DC 12/20/16 09:08 Ondansetron HCl (Zofran Inj) 4 mg ONCE STAT IV 12/20/16 11:25 12/20/16 11:27 DC 12/20/16 11:31 Potassium Chloride (Klor-Con 20) 60 meq ONCE STAT PO 12/20/16 13:20 12/20/16 13:21 DC 12/20/16 13:25 Procedures/MDM 46-year-old female patient with past medical history presents to the ED complaining of abdominal pain, vomiting, diarrhea. Patient is afebrile and nontoxic-appearing. Patient has normal vital signs. Patient was further worked up with CBC, CMP, lipase, UA, CT of abdomen and pelvis without contrast. Patient's pain and symptoms have improved after treatment with grams IV morphine, 4 mg IV Zofran. CBC: No leukocytosis. No e/o of systemic infection. No e/o anemia. CMP: No e/o severe acidosis, alkalosis, renal failure, diabetic ketoacidosis, liver disease Lipase within normal limits. Urine: No leukocyte esterase, no nitrites, no hematuria. Urine : Negative PROCEDURE: CT Abdomen and Pelvis without contrast. CLINICAL INDICATION: Abdominal pain, vomiting. TECHNIQUE: CT scan of the abdomen and pelvis without contrast was performed on a multidetector high-resolution CT scanner. The patient was scanned without intravenous contrast. Coronal and sagittal reformatted images were obtained from the axial source images. Images were reviewed on a high-resolution PACS workstation. One or more of the following dose reduction techniques were used: Automated exposure control, adjustment of the mA and/or kV according to patient size, use of iterative reconstruction technique. The total exam CTDI equals 10.12 mGy and the total exam DLP equals 590.34 mGy-cm. COMPARISON: Abdominal ultrasound from 10/31/2013 FINDINGS: CT abdomen: The lung bases are clear. The heart size is normal, without pericardial thickening or effusion. The liver is enlarged measuring 19.5 cm and demonstrates diffusely decreased density without focal mass or intrahepatic biliary dilatation. The spleen is normal in size and homogeneous in density. The stomach is grossly unremarkable. The pancreas as visualized is normal. The gallbladder and biliary tree are unremarkable and there is no evidence for biliary dilatation. The adrenal glands are symmetric and normal. The kidneys are symmetrically unremarkable as well. No renal calculus or obstructive uropathy or mass lesion is seen. The aorta is of normal caliber. There is no retroperitoneal lymphadenopathy. The carolyn hepatis region is clear. There is a small duodenal diverticulum at the medial aspect of the second portion of the duodenum. Otherwise, the small bowel and mesentery, as visualized, are unremarkable. CT pelvis: The small bowel loops situated within the pelvis are unremarkable. The endometrium appears thickened in the region of the lower uterine segment measuring up to 1.9 cm. A predominately fat density lesion measuring 2.1 x 2.4 x 1.9 cm is present in the right adnexa region. There is minimal focal peripheral soft tissue component. No associated calcifications are seen. Otherwise, the pelvic organs are normal. The pelvic sidewalls and inguinal regions are clear. Scattered diverticula are present in the descending and sigmoid colon without evidence of diverticulitis . The appendix is normal. No mass, lymphadenopathy, or free fluid is seen. No acute inflammation is seen. The surrounding osseous structures are unremarkable. There is congenital lumbar spinal stenosis with superimposed degenerative changes including disc bulges and ligamentum flavum hypertrophy, resulting in moderate to severe central canal stenosis at L3 - L5, worst at L4-L5. No osteolytic or osteoblastic lesion is detected. IMPRESSION: 1. No evidence of abdominal or pelvic acute inflammatory process. 2. 2.1 x 2.4 x 1.9 cm mixed fat and soft tissue density mass within the right adnexa region, consistent with a dermoid cyst (teratoma). 3. Focal thickening of the endometrium in the lower uterine segment measuring up to 1.9 cm, nonspecific. If there is further concern, consider further evaluation with dedicated pelvic ultrasound. 4. Diverticulosis without evidence of diverticulitis. 5. Small fat-containing umbilical hernia. 6. Small duodenal diverticulum. 7. Hepatomegaly and hepatic steatosis. PROCEDURE: US Pelvis. CLINICAL INDICATION: pelvic pain , vaginal bleeding TECHNIQUE: Multiple sonographic images of the pelvis were obtained utilizing a transabdominal and endovaginal technique. The images were reviewed on a PACS workstation. COMPARISON: CT 12/20/2016 FINDINGS: The uterus is slightly enlarged in size with a heterogeneous appearance of the myometrium. The uterus measures 11.2 x 4.7 x 6.4 cm. The endometrial stripe is homogeneous in appearance and has the thickness of 10 mm. The ovaries are visualized. No free fluid is present within the pelvis. RPTAT: AA IMPRESSION: Slightly enlarged and heterogeneous uterus with no discrete mass. Ovaries not visualized. Recently described possible right adnexal dermoid was not seen by ultrasound. Patient has a possible teratoma noted on CT. Patient has diverticulosis but no evidence of diverticulitis. No leukocytosis. Low suspicion for ectopic , ovarian torsion, gastritis, GERD, peptic ulcer disease, cholecystitis , choledocholithiasis, cholangitis, pancreatitis, appendicitis, bowel obstruction, ileus, volvulus, nephrolithiasis, pyelonephritis, hepatitis, perforated viscus, diverticulitis, strangulated/incarcerated hernia, DKA, acute abdomen, mesenteric ischemia or other emergent conditions. Discharge medications: Tylenol, Zofran Follow up with primary care physician in 1-2 days for referral to blueprint engineer and [facility] for further evaluation and treatment. Instructed patient to return to the ED sooner for any worsening symptoms. Patient's questions were answered. Patient understood and agreed with discharge plan. Patient discharged stable. Departure Diagnosis: Primary Impression: Abdominal pain Abdominal location: unspecified location Qualified Code: R10.9 - Abdominal pain, unspecified abdominal location Additional Impression: Vomiting and diarrhea Condition: Stable Patient Instructions: Abdominal Pain, Understanding Diverticulosis and Diverticulitis, What Are Ovarian Cysts?, Hypokalemia Referrals: [facility] YOU HAVE RECEIVED A MEDICAL SCREENING EXAM AND THE RESULTS INDICATE THAT YOU DO NOT HAVE A CONDITION THAT REQUIRES URGENT TREATMENT IN THE EMERGENCY DEPARTMENT. FURTHER EVALUATION AND TREATMENT OF YOUR CONDITION CAN WAIT UNTIL YOU ARE SEEN IN YOUR DOCTORS OFFICE WITHIN THE NEXT 1-2 DAYS. IT IS YOUR RESPONSIBILITY TO MAKE AN APPOINTMENT FOR FOLOW-UP CARE. IF YOU HAVE A PRIMARY DOCTOR --you should call your primary doctor and schedule an appointment IF YOU DO NOT HAVE A PRIMARY DOCTOR YOU CAN CALL OUR PHYSICIAN REFERRAL HOTLINE AT IF YOU CAN NOT AFFORD TO SEE A PHYSICIAN YOU CAN CHOSE FROM THE FOLLOWING [facility] [address] [facility]. [facility] [address] [facility] [address] [facility] [address] [facility]. [facility] [address] [facility]. [facility]. [address] [facility] YOU HAVE RECEIVED A MEDICAL SCREENING EXAM AND THE RESULTS INDICATE THAT YOU DO NOT HAVE A CONDITION THAT REQUIRES URGENT TREATMENT IN THE EMERGENCY DEPARTMENT. FURTHER EVALUATION AND TREATMENT OF YOUR CONDITION CAN WAIT UNTIL YOU ARE SEEN IN YOUR DOCTORS OFFICE WITHIN THE NEXT 1-2 DAYS. IT IS YOUR RESPONSIBILITY TO MAKE AN APPOINTMENT FOR FOLOW-UP CARE. IF YOU HAVE A PRIMARY DOCTOR --you should call your primary doctor and schedule and appointment IF YOU DO NOT HAVE A PRIMARY DOCTOR YOU CAN CALL OUR PHYSICIAN REFERRAL HOTLINE AT . IF YOU CAN NOT AFFORD TO SEE A PHYSICIAN YOU CAN CHOSE FROM THE FOLLOWING [facility] INSTITUTIONS: [facility] [address] [place] [address] [facility] [address] [place] [address] [facility] [address] [place] [address] [facility] URGENT CARE/SPECIALTIES [facility] [address] [facility] [address] [place] [address] OFFICE FAX , [facility] [address] [place], [place] [id number] [facility] [address] [place] [address] DR GONZÁLES, [facility] [id number] [facility] [address] [facility] [address] [place] [address] [facility] [address] [place] [address] [address] [facility] [address] - [place] [place] [address], [facility] [address] [address], [facility] [address] [facility]. [address], [facility] [address] [facility] [address] [place], [place] [id number] [facility] Hours: 8:00 am - 5:00 pm Additional Instructions: Llame al doctor ZACH y chantel jovany MIKEY PARA DENTRO DE 1-2 LASSITER para jovany referencia a un obstetra/Gineclogo para mayor cuidado y evaluacin. Dgale a la secretaria que nosotros le instruimos hacer esta mikey.Avise o llame si dunaway condicin se empeora antes de la mikey. Regresa aqui si peor o no mejor. NGOC YOUNG PA-C Dec 20, 2016 15:44 NGOC YOUNG PA-C Dec 20, 2016 15:44
== END 2016-12-20 14:41 | disposition home or self-care (01) ==
LOC: FTE 06:58
DX: R10.84 Generalized abdominal pain (principal); R11.10 Vomiting, unspecified; R19.7 Diarrhea, unspecified
CPT/HCPCS: 36415; 74176; 76830; 76856; 80053; 81001; 83690; 85025; 96374; 96375; 96376; J2270; J2405; J7030; Z7502; Z7610